=== PATIENT | female | born 1985 | race Caucasian/White ===

== ENCOUNTER 2020-04-13 10:30 | Emergency (ER) | payer MEDICAID ==
[2020-04-13 12:17] LABS: BASOPHILS # (AUTO) 0.1 10^3/uL (0.0-0.1); BASOPHILS % (AUTO) 0.6 %; EOSINOPHILS # (AUTO) 0.1 10^3/uL (0.0-0.7); EOSINOPHILS % (AUTO) 1.1 %; HCT - HEMATOCRIT 44.2 % (37.0-47.0); LYMPHOCYTES % (AUTO) 20.5 %; MEAN CORPUSCULAR HEMOGLOBIN 30.8 pg (27.0-31.0); MEAN CORPUSCULAR HGB CONC 33.9 g/dL (32.0-36.0); MEAN CORPUSCULAR VOLUME 90.8 fL (81.0-99.0); MEAN PLATELET VOLUME 10.5 fL (7.9-10.8); MONOCYTES # (AUTO) 0.5 10^3/uL (0.0-1.0); MONOCYTES % (AUTO) 5.1 %; NEUTROPHILS # (AUTO) 7.1 10^3/uL (1.5-6.6); NEUTROPHILS % (AUTO) 72.2 %; PLT - PLATELET COUNT 211 10^3/uL (130-450); RED BLOOD COUNT 4.87 10^6/uL (4.20-5.40); RED CELL DISTRIBUTION WIDTH 12.5 % (12.0-15.0); WHITE BLOOD COUNT 9.9 x10^3/uL (4.8-10.8)
[2020-04-13 12:40] LABS: ALBUMIN 5.1 g/dL (3.2-5.5); ALBUMIN/GLOBULIN RATIO 1.6 (1.0-2.2); CALCIUM 9.8 mg/dL (8.5-10.3); CREATININE 0.9 mg/dL (0.4-1.0); POTASSIUM 4.1 mmol/L (3.5-5.0); TOTAL PROTEIN 8.3 g/dL (6.7-8.2)
[2020-04-13 14:12] LABS: BILIRUBIN,URINE NEGATIVE (NEGATIVE); GLUCOSE, URINE (UA) NEGATIVE (NEGATIVE); KETONES,URINE (UA) >=80 mg/dL (NEGATIVE); LEUKOCYTE ESTERASE, URINE NEGATIVE (NEGATIVE); NITRITE,URINE POSITIVE (NEGATIVE); OCCULT BLOOD,URINE SMALL (NEGATIVE); PROTEIN,URINE NEGATIVE (NEGATIVE); UROBILINOGEN,URINE 0.2 (NORMAL) E.U./dL (NORMAL)
[2020-04-13 14:15] LABS: CLARITY,URINE HAZY (CLEAR); HCG UR QUAL NEGATIVE
[2020-04-13 14:24] LABS: BACTERIA,URINE Moderate /HPF (None Seen); SQUAMOUS EPITHELIAL CELL,UR MANY Squamous (<= Few); WBC,URINE 0-3 /HPF (0-5)
[2020-04-13] MEDS ORDERED: ONDANSETRON 4 MG/2 ML VIAL IVP STA (14:32)
[2020-04-13] MEDS ORDERED: SODIUM CHLORIDE 0.9% 1,000 ML IV STA (14:32)
--- NOTE | 2020-04-13 14:51 | ED Physician Documentation ---
History of Present Illness - Stated complaint Stated Complaint: NAUSEA/VOMITING/PX - Chief complaint Chief Complaint: Abd Pain - History obtained from History obtained from: Patient - Additonal information Additional information: 34-year-old female presents to the emergency department for evaluation of lower abdominal pain and vomiting. She reports a history that for much of the last 5 years she has been having recurrent lower belly pain and has lost about 40 pounds. She was seen at [facility] ER in [place] 04/07/2020. While there she underwent labs that she reports were normal. She also underwent a CT of the abdomen and pelvis as well as a pelvic ultrasound. She was told that she may have adenomyosis and would need to have evaluation for possible hysterectomy. She reports that she was told that it may be cancerous. She was seen by Dr. Turk in office today and referred to the ER for evaluation of her uncontrolled vomiting and pain. 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 She has a history of melanoma on the left hip in the past as well Patient is quite frustrated and upset. She is expecting a hysterectomy today in the emergency department. When I discussed that we would likely need to make a referral to appropriate services such as [facility] she began crying and stating that she cannot deal with this anymore and after 5 years that she cannot afford to stay up in [place] as her children are in [place]. Review of Systems Constitutional: reports: Fatigue, Weight Loss Eyes: reports: Reviewed and negative Ears: reports: Reviewed and negative Nose: reports: Reviewed and negative Throat: reports: Reviewed and negative Cardiac: reports: Reviewed and negative Respiratory: denies: Dyspnea, Cough GI: reports: Abdominal Pain, Nausea, Vomiting : denies: Dysuria, Frequency, Hesitancy PD PAST MEDICAL HISTORY - Past Medical History : Kidney stones - Past Surgical History Past Surgical History: Yes General: Cholecystectomy /MANAGER PROGRAMS: section - Present Medications Home Medications: Ambulatory Orders Medication Instructions Recorded Confirmed Ibuprofen [Motrin] 800 mg PO Q8H PRN #30 tablet 11/11/12 oxyCODONE/ACET 5/325 [Percocet 5 1 - 2 each PO Q6H PRN #14 tablet 11/11/12 mg/325 mg] Cephalexin [Keflex] 500 mg PO BID #14 capsule 04/13/20 Ondansetron Odt [Zofran] 4 mg TL Q6H PRN #10 tablet 04/13/20 predniSONE [Deltasone] 10 mg PO [id number] #42 tab 04/13/20 - Allergies Allergies/Adverse Reactions: Allergies Allergy/AdvReac Type Severity Reaction Status Date / Time Sulfa (Sulfonamide Allergy Intermediate mouth Verified 04/13/20 10:47 Antibiotics) sores/swelling acetaminophen [From Vicodin] Allergy Nausea Verified 04/13/20 10:47 hydrocodone bitartrate * Allergy Nausea Verified 04/13/20 10:47 [From Vicodin] - Social History Does the pt smoke?: No Smoking Status: Never smoker Does the pt drink ETOH?: No Does the pt have substance abuse?: No - POLST Patient has POLST: No PD ED PE EXPANDED - General General: Alert, Anxious, Other (crying, anxious) - Cardiac Cardiac: Regular Rate, Radial strong equal, Pedal strong equal, Cap refill < 2 sec - Respiratory Respiratory: Clear to ausultation claire. No: Distress, Labored - Abdomen Abdomen: Normal Bowel sounds, Tender to palpation (lower abdomen wihtotu guarding or rebound) - Derm Derm: Normal color, Warm and dry, Pale, Other (irregular mole right hip ) - Extremities Extremities: Normal. No: Deformity, Tenderness - Neuro Neuro: Alert and Oriented X 3, CNII-XII intact - GCS Eye Opening: Spontaneous Motor: Obeys Commands Verbal: Oriented Total: 15 Results - Vitals Vitals: Vital Signs - 24 hr 04/13/20 04/13/20 04/13/20 10:47 15:41 16:13 Temperature 36.9 C Heart Rate 69 75 77 Respiratory 18 16 17 Rate Blood Pressure 120/90 H 89/59 L 110/77 O2 Saturation 99 100 99 Oxygen O2 Source Room air - Labs Labs: Laboratory Tests 04/13/20 04/13/20 04/13/20 12:12 12:12 13:58 WBC 9.9 RBC 4.87 Hgb 15.0 Hct 44.2 MCV 90.8 MCH 30.8 MCHC 33.9 RDW 12.5 Plt Count 211 MPV 10.5 Neut # (Auto) 7.1 H Lymph # (Auto) 2.0 [place] # (Auto) 0.5 Eos # (Auto) 0.1 Baso # (Auto) 0.1 Absolute Nucleated RBC 0.00 Nucleated RBC % 0.0 Sodium 136 Potassium 4.1 Chloride 101 Carbon Dioxide 23 Anion Gap 12.0 BUN 18 Creatinine 0.9 Estimated GFR (MDRD) 73 L Glucose 72 Calcium 9.8 Total Bilirubin 1.0 AST 24 ALT 23 Alkaline Phosphatase 36 L Total Protein 8.3 H Albumin 5.1 Globulin 3.2 Albumin/Globulin Ratio 1.6 Lipase 25 Urine Color YELLOW Urine Clarity HAZY Urine pH 6.0 Ur Specific [place] 1.025 Urine Protein NEGATIVE Urine Glucose (UA) NEGATIVE Urine Ketones >=80 H Urine Occult Blood SMALL H Urine Nitrite POSITIVE H Urine Bilirubin NEGATIVE Urine Urobilinogen 0.2 (NORMAL) Ur Leukocyte Esterase NEGATIVE Urine RBC 6-10 H Urine WBC 0-3 Ur Squamous Epith Cells MANY Squamous H Urine Bacteria Moderate H Ur Microscopic Review INDICATED Urine Culture Comments NOT INDICATED Urine HCG, Qual NEGATIVE - Rads (name of study) Pelvic US Radiology: Final report received (Suggestive of a 1.8 x 2.3 cm hemorrhagic cyst or complex cyst in the right ovary. No gross abnormality seen in the uterus and endometrium) PD MEDICAL DECISION MAKING - ED course Complexity details: reviewed results, re-evaluated patient, considered differential, d/w patient ED course: 34-year-old female comes to the emergency department for evaluation of uncontrolled vomiting and lower abdominal pain. She did have a ER visit in [place] last week for similar. In reviewing the records from the emergency department in [place] they did complete an ultrasound of her uterus that Suggested possible adenomyosis. A CT scan was completed during the same ED visit. It also suggested duodenal wall thickening and distal and terminal ileal wall thickening raising the possibility of a multifocal infectious or inflamma tory enteritis. Review of the patient's labs today show no significant leukocytosis. Preserved kidney and liver function. Her urine does raise the possibility of a urinary tract infection. After discussion with the patient it does sound that there is a strong family history for Crohn's disease as well as uterine cancer. The patient reports to me that she has an appointment in 3 weeks with an OB in [place] to discuss the possible adenomyosis of the uterus and to discuss the need for a hysterectomy. However 1 is not indicated emergently today. Reviewing the CT scan from [place] certainly raises the suspicion for an inflammatory bowel disorder. I discussed this at length with the patient. We will start her on a 10-day tapered course of prednisone. Dr. Turk has referred her to gastroenterology. She may need a endoscopy or colonoscopy for further evaluation and to determine if she does not fact have inflammatory bowel disease. Patient will be given a prescription for Zofran to help with the nausea and vomiting at home as well as a short prescription of Keflex for the possible asymptomatic urinary tract infection. Departure - Departure Disposition: Home, Self Care Clinical Impression: Right ovarian cyst, Enteritis Nausea and vomiting Qualifiers: Vomiting type: unspecified Vomiting Intractability: non-intractable Qualified Code(s): R11.2 - Nausea with vomiting, unspecified Condition: Stable Record reviewed to determine appropriate education?: Yes Instructions: ED Colitis Ulcerative Follow-Up: Emily Turk MD [Provider Admit Priv/Credential] - Ila Funez MD [Provider Admit Priv/Credential] - Prescriptions: predniSONE [Deltasone] 10 mg PO [id number] #42 tab Cephalexin [Keflex] 500 mg PO BID #14 capsule Ondansetron Odt [Zofran] 4 mg TL Q6H PRN #10 tablet PRN Reason: Nausea / Vomiting Comments: Gwendolyn we have reviewed the imaging results from the [place] ED visit. The CT scan suggests an inflammatory bowel disorder. Because you do have a strong family history for Crohn's we would like to start you on a 10-day course of steroids. The steroids should help with the pain and vomiting. However please be cautious they may cause insomnia and mood swings. I am also prescribing some Zofran to help with the nausea at home. As we discussed your urine suggest that you have an infection today which may be asymptomatic. I would like you to fill the prescription for the Keflex and take twice daily as prescribed. I have made a referral for you to Dr. Funez. She is an OB here on the [place]. She can discuss with you the ovarian cyst and your concern for adenomyosis and whether you need a hysterectomy or if you are entering early menopause. Dr. Storey the surgeon you saw today has made a referral for you to gastroenterology. These are the doctors that can do the testing necessary to determine if you have a disorder like Crohn's. If at any point you have worsening symptoms, feel that the vomiting is not well controlled with Zofran, or suddenly severe abdominal pain please return to the emergency department for a second look
--- NOTE | 2020-04-13 16:35 | Ultrasound Report ---
PROCEDURE: Pelvic w/Transvaginal INDICATIONS: LOWER PELVIC PAIN, ? ADENOMYOSIS TECHNIQUE: Real-time scanning was performed of the pelvic organs, with image documentation. Additional endovagi nal scanning was necessary due to incomplete visualization of the adnexal and endometrial structures by transabdominal scanning. COMPARISON: None. FINDINGS: Transabdominal scanning: Limited scanning through the kidneys shows no hydronephrosis. No pathologi c free abdominal or pelvic fluid. Endovaginal scanning: Uterus: Uterus is normal in size at 7.2 x 3.9 x 5.1 cm. The endometrium measures 829 mm in combined thickness. No endometrial mass or fluid is seen. section scar is seen in anterior lower ut erine segment. No discrete uterine fibroid. Ovaries: Right ovary measures 3.7 x 2.8 x 4 cm in size. Left ovary measures 3.6 x 1.4 x 3.4 cm in si ze. Less than 12 follicles are seen in each ovary. There is suggestion of a 1.8 x 1.6 x 2.3 cm comple x cyst or hemorrhagic cyst seen in right ovary. No gross solid-appearing ovarian lesion. Normal blood flow is seen in bilateral ovaries on telemetry Doppler images. IMPRESSION: 1. Suggestion of a 1.8 x 1.6 x 2.3 cm hemorrhagic cysts or complex cysts in right ovary. No gross maik id-appearing ovarian lesion. No evidence of ovarian torsion. 2. No gross abnormality is seen in uterus and endometrium. Reviewed by: Declan Gross MD on 04/13/2020 4:34 PM PST Approved by: Declan Grsos MD on 04/13/2020 4:34 PM PST Station ID: [id number]
[2020-04-13 17:15] VITALS: BP 100/65
== END 2020-04-13 17:20 | disposition home or self-care (01) ==
LOC: ED 10:30
DX: N83.201 Unspecified ovarian cyst, right side (principal); K52.9 Noninfective gastroenteritis and colitis, unspecified
CPT/HCPCS: 36415; 80053; 81001; 81003; 81025; 83690; 85025; 87086; 96361; 96374; 99283

== ENCOUNTER 2020-04-15 11:57 | Outpatient (CLI) | payer MEDICAID ==
[2020-04-17 13:41] LABS: HEPATITIS A IGM NON-REACTIVE (NON-REACTIVE); HEPATITIS B SURFACE ANTIGEN NON-REACTIVE (NON-REACTIVE); HEPATITIS C ANTIBODY NON-REACTIVE (NON-REACTIVE)
== END 2020-04-15 11:58 | disposition home or self-care (01) ==
LOC: LAB 11:57
PROVIDERS: ATTEND Obstetrics & Gynecology
DX: R63.4 Abnormal weight loss (principal)
CPT/HCPCS: 36415; 80074; 81599; 82306; 84439; 84443; 86140; 86376; 86480; 86592; 86800